=== PATIENT | female | born 1980 | race Caucasian/White ===

== ENCOUNTER → 2017-12-09 | Day surgery (SDC) | payer OTHER ==
[~2017-12-09] VITALS: Ht 162.6 cm; Wt 54.4 kg
[~2017-12-09] MED LIST: ASPIRIN81 M4 PO; DOCUSATE SODIU100 M3 PO; ESTRACE PO; GABAPENTIN300 M2 PO; IBUPROFEN800 M1 PO; PERCOCET 5-3251 EACH PO; VITAFOL-ONE1 SGL PO
--- NOTE | 2017-12-23 12:07 | Operative Report ---
Operative/Inv Procedure Report Surgery Date: 12/09/17 Name of Procedure: Exchange bilateral breast implants cosmetic Pre-Operative Diagnosis: Asymmetry bilateral breast implants cosmetic Post-Operative Diagnosis: Same Estimated Blood Loss: scant Surgeon/Industrial Technology Teacher: William Rios MD Anesthesia: laryngeal mask airway Operative/Procedure Note Note: Patient was counseled regards to the procedure the alternatives the risks and expected outcomes as relates to request to exchange bilateral silicone breast implant in the same pocket. The patient likely has a right-sided implant that has flipped and is readily visible through the skin. She is asymptomatic bilaterally. We talked about exchanging the implants and she has chosen the style texture and size. We talked about the risks including in a SPS informed consent which has been returned signed but which included but was not limited to infection bleeding pain numbness recurrence of the flipping capsular contracture seroma hematoma window shading deformity. Once agreed she signed informed consent the day of surgery. She was taken to the operative placed supine on the table. After the application of Venodyne boots general anesthesia and intravenous antibiotics the chest was prepped and draped in usual sterile fashion. Inframammary incisions were used bilaterally. On the right side pocket was accessed and found to contain an implant that had reversed itself in position being upside down in the front to back direction. No other abnormality was seen. Using the no touch technique multiple glove changes Ioban drapes nipple ty Kelner final reprepping of the skin with avoidance of skin contact and the implant the implants were exchanged bilaterally with a 3-4 layer closure of the inframammary folds. Copious irrigation was used with triple antibiotic and Betadine solution as a implant bath as well as pocket irrigation.
== END ==
LOC: STS 04:36
DX: Z41.1 Encounter for cosmetic surgery (principal); N64.89 Other specified disorders of breast; T85.42XA Displacement of breast prosthesis and implant, initial encounter; Z87.891 Personal history of nicotine dependence
CPT/HCPCS: 81025; J0131; J0690; J1580; J2250